=== PATIENT | female | born 1970 | race Caucasian/White ===

== ENCOUNTER 2023-07-31 06:58 | Day surgery (SDC) | payer BC ==
[2023-07-30 12:41] VITALS: BP 178/84; PULSE 80; RESP 18
[2023-07-30 12:57] LABS: BASOPHILS # (AUTO) 0.06 K/uL (0.00-0.20); BASOPHILS % (AUTO) 0.9 % (0.0-5.0); EOSINOPHILS % (AUTO) 4.4 % (0.0-8.0); HEMATOCRIT 42.6 % (36-48); IMMATURE GRANULOCYTE ABSOLUTE 0.02 K/uL (0-1); LYMPHOCYTES # (AUTO) 2.1 K/uL (1.0-4.8); LYMPHOCYTES % (AUTO) 30.5 % (21.0-51.0); MEAN CORPUSCULAR HEMOGLOBIN 29.3 pg (27.0-33.0); MEAN CORPUSCULAR HGB CONC 32.2 g/dL (32.0-36.0); MONOCYTES # (AUTO) 0.5 K/uL (0.1-1.0); MONOCYTES % (AUTO) 7.1 % (3.0-13.0); NEUTROPHILS # (AUTO) 3.8 K/uL (1.8-7.7); NEUTROPHILS % (AUTO) 56.8 % (40.0-77.0); PLATELET COUNT (AUTO) 249 K/uL (130-400); RED BLOOD CELL COUNT(AUTO) 4.68 MIL/uL (4.00-5.50); WHITE BLOOD COUNT (AUTO) 6.8 K/uL (4.8-10.8)
[2023-07-30 13:07] LABS: CREATININE 0.9 mg/dL (0.5-1.5); POTASSIUM 4.5 mmol/L (3.5-5.1)
[2023-07-31] VITALS (13 sets, daily range): BP systolic 127–152; BP diastolic 75–96; PULSE 64–105; RESP 10–18
[~2023-07-31] VITALS: Ht 170.2 cm; Wt 108.6 kg
[~2023-07-31 06:58] MED LIST: FAMO40TA7 PO; OMEP40CA21 PO; PROG100C11 PO; THYR120T2 PO
[2023-07-31] MEDS ORDERED: SUCCINYLCHOLINE CHLORIDE 20 MG/ML 10 ML VIAL ONE (08:16)
[2023-07-31] MEDS ORDERED: MIDAZOLAM HCL 1 MG/ML 2ML VIAL ONE (08:16)
[2023-07-31] MEDS ORDERED: ROCURONIUM BROMIDE 10MG/1ML 5ML VL ONE (08:16)
[2023-07-31] MEDS ORDERED: PROPOFOL 10 MG/ML 20ML VIAL IV ONE (08:16)
[2023-07-31] MEDS ORDERED: NEOSTIGMINE 5MG/5ML SYR IV ONE (08:55)
[2023-07-31] MEDS ORDERED: GLYCOPYRROLATE 1 MG/5 ML SYRINGE ONE (08:55)
[2023-07-31] MEDS ORDERED: KETOROLAC 30MG VIAL (30MG/ML) ONE (09:25)
== END 2023-07-31 10:30 | disposition home or self-care (01) ==
LOC: DAH 06:58
PROVIDERS: ATTEND Obstetrics & Gynecology
DX: Z30.430 Encounter for insertion of intrauterine contraceptive device (principal); N93.9 Abnormal uterine and vaginal bleeding, unspecified; N94.6 Dysmenorrhea, unspecified; D21.9 Benign neoplasm of connective and other soft tissue, unspecified; E66.01 Morbid (severe) obesity due to excess calories; Z68.37 Body mass index [BMI] 37.0-37.9, adult; Z83.3 Family history of diabetes mellitus; Z87.19 Personal history of other diseases of the digestive system; Z80.0 Family history of malignant neoplasm of digestive organs; Z80.8 Family history of malignant neoplasm of other organs or systems; Z91.040 Latex allergy status
CPT/HCPCS: 80048; 84703; 85025; 36415; 58558; 58300; A6260; A4663; J7030; A4351; A4355; J3490 ×2; J2710; J0330; J2250; J2704; J1885; A4215; A4223; A4222; A4221